=== PATIENT | female | born 1990 | race Caucasian/White ===

== ENCOUNTER 2018-07-09 08:10 | Inpatient (IN) | payer BC ==
[~2018-07-09] VITALS: Ht 157.5 cm; Wt 76.0 kg
[2018-07-09] MEDS ORDERED: OXYTOCIN 30U/ 0.9% NaCL 500ML 500 ML IV PRN (19:42)
[2018-07-09] MEDS ORDERED: D5%-LACTATED RINGERS 1,000 ML IV SCH (19:42)
[2018-07-09] MEDS ORDERED: OXYTOCIN 30U/ 0.9% NaCL 500ML 500 ML IV ONE (19:42)
[2018-07-09] MEDS: LACTATED RINGERS 1,000 ML IV SCH (19:42)
[2018-07-09] MEDS ORDERED: NEWBORN KIT ONE (19:48)
[2018-07-09] MEDS ORDERED: OXYTOCIN 30U/ 0.9% NaCL 500ML 500 ML ONE (19:56)
[2018-07-09] MEDS ORDERED: ONDANSETRON ODT 4 MG PO PRN (20:00)
[2018-07-09] MEDS ORDERED: FENTANYL PF 100 MCG/2ML IV PRN (20:00)
[2018-07-09] MEDS ORDERED: MISOPROSTOL 25 MCG TABLET VG PRN (20:00)
[2018-07-09] MEDS ORDERED: FENTANYL PF 100 MCG/2ML IVPush PRN (20:00)
[2018-07-09] MEDS ORDERED: CALCIUM CARBONATE 500 MG TAB.CHEW PO PRN (20:00)
[2018-07-09] MEDS ORDERED: ALBU18HF INH (20:03)
[2018-07-09] MEDS ORDERED: PREN1TAB60 PO (20:03)
[2018-07-09 20:04] VITALS: BP 126/80
[2018-07-09 20:23] LABS: BASOPHILS # (AUTO) 0.03 x10^3/uL (0-0.1); BASOPHILS % (AUTO) 0 % (0-1); EOSINOPHILS # (AUTO) 0.04 x10^3/uL (0-0.4); EOSINOPHILS % (AUTO) 0 % (1-7); LYMPHOCYTES # (AUTO) 1.54 x10^3/uL (1-3.4); LYMPHOCYTES % (AUTO) 14 % (22-44); MD NO; MEAN CORPUSCULAR HEMOGLOBIN 31.7 pg (27.0-34.8); MEAN CORPUSCULAR HGB CONC 34.4 g/dL (32.4-35.8); MEAN CORPUSCULAR VOLUME 92.2 fL (80-100); MEAN PLATELET VOLUME 8.5 fL (7.4-10.4); MONOCYTES # (AUTO) 1.02 x10^3/uL (0.2-0.8); MONOCYTES % (AUTO) 10 % (2-9); NEUTROPHILS # (AUTO) 8.03 x10^3/uL (1.8-6.8); NEUTROPHILS % (AUTO) 75 % (42-75); PLATELET COUNT 224 x10^3/uL (130-400); RED BLOOD COUNT 4.08 x10^6/uL (3.82-5.3); RED CELL DISTRIBUTION WIDTH 14.1 % (9.6-15.2)
[2018-07-09] MEDS ORDERED: FENTANYL/BUPIV./NS/PF 250 ML EPIDCONT SCH ×2 (20:23→21:03)
[2018-07-09] MEDS ORDERED: BUPIVACAINE 0.25% ONE (20:26)
[2018-07-09] MEDS ORDERED: LACTATED RINGERS 1,000 ML IVBOLUS PRN (20:30)
[2018-07-09] MEDS: PLEASE ENTER HEIGHT AND WEIGHT MC SCH (20:30)
[2018-07-09] MEDS ORDERED: EPHEDRINE 50 MG/ML, 1ML IVPush PRN (20:30)
[2018-07-09] MEDS ORDERED: NALOXONE 0.4 MG/ML, 1ML IVPush PRN (20:30)
[2018-07-10] MEDS: LACTATED RINGERS 1,000 ML IV SCH ×3 (00:03→13:25)
[2018-07-10] MEDS ORDERED: CALCIUM CARBONATE 500 MG TAB.CHEW ONE (00:37)
[2018-07-10] MEDS: PLEASE ENTER HEIGHT AND WEIGHT MC SCH ×2 (04:30→12:30)
[2018-07-10] MEDS ORDERED: FENTANYL PF 100 MCG/2ML ONE (12:33)
[2018-07-10] MEDS: OXYTOCIN 30U/ 0.9% NaCL 500ML 500 ML IV SCH ×2 (12:40→22:40)
[2018-07-10] MEDS ORDERED: OXYcodone/APAP 5/325MG TABLET PO PRN ×2 (13:00)
[2018-07-10] MEDS ORDERED: MISOPROSTOL 200 MCG TABLET PR PRN (13:00)
[2018-07-10] MEDS ORDERED: MEASLES,MUMPS&RUBELLA VACC/PF 0.5 ML SQ-VACC PRN (13:00)
[2018-07-10] MEDS ORDERED: MAGNESIUM HYDROXIDE 8%, 30ML UDC PO PRN (13:00)
[2018-07-10] MEDS ORDERED: ACETAMINOPHEN 325 MG TABLET PO PRN ×2 (13:00)
[2018-07-10] MEDS ORDERED: IBUPROFEN 600 MG TABLET PO PRN (13:00)
[2018-07-10] MEDS ORDERED: DIPH,PERTUSS(ACELL),TET VAC/PF NC IM-VACC PRN (13:00)
[2018-07-10] MEDS ORDERED: RHOGAM FROM BLOOD BANK 1 NOTE EA IM/IV ONE (13:00)
[2018-07-10] MEDS ORDERED: CALCIUM CARBONATE 500 MG TAB.CHEW PO PRN (13:00)
[2018-07-10] MEDS ORDERED: ONDANSETRON 2MG/ML, 2ML IV PRN (13:00)
[2018-07-10] MEDS ORDERED: TERBUTALINE 1 MG/ML, 1ML ONE (13:10)
[2018-07-10] MEDS ORDERED: NEWBORN KIT ONE (13:45)
[2018-07-10 16:10] VITALS: BP 127/84
[2018-07-10 19:50] VITALS: BP_SYST 129; BP_SYST 133; BP_DIAS 87; BP_DIAS 91
[2018-07-10] MEDS: DOCUSATE 100 MG CAPSULE PO PRN (21:18)
[2018-07-10 22:02] LABS: BASOPHILS # (AUTO) 0.03 x10^3/uL (0-0.1); BASOPHILS % (AUTO) 0 % (0-1); EOSINOPHILS # (AUTO) 0.03 x10^3/uL (0-0.4); EOSINOPHILS % (AUTO) 0 % (1-7); LYMPHOCYTES % (AUTO) 13 % (22-44); MD NO; MEAN CORPUSCULAR HEMOGLOBIN 31.6 pg (27.0-34.8); MEAN CORPUSCULAR HGB CONC 34.5 g/dL (32.4-35.8); MEAN CORPUSCULAR VOLUME 91.6 fL (80-100); MEAN PLATELET VOLUME 8.4 fL (7.4-10.4); MONOCYTES # (AUTO) 1.06 x10^3/uL (0.2-0.8); MONOCYTES % (AUTO) 8 % (2-9); NEUTROPHILS # (AUTO) 10.15 x10^3/uL (1.8-6.8); NEUTROPHILS % (AUTO) 78 % (42-75); PLATELET COUNT 221 x10^3/uL (130-400); RED BLOOD COUNT 3.74 x10^6/uL (3.82-5.3); RED CELL DISTRIBUTION WIDTH 14.2 % (9.6-15.2)
[2018-07-10 23:40] VITALS: BP 108/73
[2018-07-11 04:25] VITALS: BP 122/89
[2018-07-11 08:15] VITALS: BP 136/76
[2018-07-11] MEDS: DOCUSATE 100 MG CAPSULE PO PRN (08:19)
[2018-07-11] MEDS ORDERED: PRENATAL VIT/IRON/FA 1 EACH TABLET PO SCH (09:00)
[2018-07-11] MEDS ORDERED: IBUP-1222 PO (10:18)
[2018-07-11 12:00] VITALS: BP 133/85
== END 2018-07-11 14:25 | disposition home or self-care (01) | DRG 807 ==
LOC: EDSEX → LDIP 19:38 → 2NW 07-10 15:47
PROVIDERS: ADMIT Obstetrics & Gynecology; ATTEND Obstetrics & Gynecology
PROC: 10E0XZZ Delivery of Products of Conception, External Approach (ICD-10-PCS; principal; 2018-07-10)
PROC: 0KQM0ZZ Repair Perineum Muscle, Open Approach (ICD-10-PCS; 2018-07-10)
PROC: 10907ZC Drainage of Amniotic Fluid, Therapeutic from Products of Conception, Via Natural or Artificial Opening (ICD-10-PCS; 2018-07-10)
PROC: 3E033VJ Introduction of Other Hormone into Peripheral Vein, Percutaneous Approach (ICD-10-PCS; 2018-07-10)
DX: O76 Abnormality in fetal heart rate and rhythm complicating labor and delivery (principal); Z37.0 Single live birth; Z3A.39 39 weeks gestation of pregnancy; O70.1 Second degree perineal laceration during delivery
CPT/HCPCS: 36415; 82803; 85025; 86850; 86900; G0378; J3010; J2590; J7120